=== PATIENT | male | born 1945 | race Caucasian/White ===

== ENCOUNTER → 2017-11-07 | Outpatient (CLI) | payer OTHER, MEDICARE ==
[~2017-11-07] MED LIST: CATHETER FLUSH 10 ML SYR IV PRN; IOHEXOL 350 MG/ML 150 ML (OMNIPAQUE 350) VIAL IV ONE; NS 250 ML (IVPB) BAG IV ONE
[2017-11-07 12:27] LABS: BASOPHILS % (AUTO) 0 % (0-10); EOSINOPHILS # (AUTO) 0.2 10^3/uL (0.0-0.3); EOSINOPHILS % (AUTO) 2 % (0-10); HEMATOCRIT 40 % (40-54); LYMPHOCYTES # (AUTO) 1.6 X 10^3 (1.0-4.0); LYMPHOCYTES % (AUTO) 11 % (12-44); MEAN CORPUSCULAR HEMOGLOBIN 38 PG (25-34); MEAN CORPUSCULAR HGB CONC 35 G/DL (32-36); MEAN CORPUSCULAR VOLUME 107 FL (80-99); MEAN PLATELET VOLUME 8.7 FL (7.4-10.4); MONOCYTES # (AUTO) 1.2 X 10^3 (0.0-1.0); MONOCYTES % (AUTO) 8 % (0-12); NEUTROPHILS # (AUTO) 11.4 X 10^3 (1.8-7.8); NEUTROPHILS % (AUTO) 79 % (42-75); PLATELET COUNT 425 10^3/uL (130-400); RED BLOOD COUNT 3.73 10^6/uL (4.35-5.85); RED CELL DISTRIBUTION WIDTH 14.6 % (10.0-14.5); WHITE BLOOD COUNT 14.5 10^3/uL (4.3-11.0)
[2017-11-07 12:42] LABS: BAND NEUTROPHILS 3 %; BASOPHILS % (MANUAL) 0 %; EOSINOPHILS % (MANUAL) 0 %; LYMPHOCYTES % (MANUAL) 14 %; MONOCYTES % (MANUAL) 8 %; NEUTROPHILS % (MANUAL) 75 %
[2017-11-07 12:46] LABS: BUN/CREATININE RATIO 23; CALCIUM 8.6 MG/DL (8.5-10.1); CARBON DIOXIDE 27 MMOL/L (21-32); CHLORIDE 95 MMOL/L (98-107); CREATININE SERUM 0.91 MG/DL (0.60-1.30); GFR ESTIMATED > 60; GLUCOSE 95 MG/DL (70-105); POTASSIUM 4.7 MMOL/L (3.6-5.0); SODIUM 130 MMOL/L (135-145)
--- NOTE | 2017-11-07 13:42 | Diagnostic Imaging Report ---
PROCEDURE: CT angiography of the chest with contrast. TECHNIQUE: Multiple contiguous axial images were obtained through the chest after uneventful bolus administration of intravenous contrast. Reconstructed CTA MIP acquisitions were also performed. INDICATION: Cough and hemoptysis. COMPARISON: Comparison is made with prior CT chest from 04/25/2017. FINDINGS: The thoracic aorta is normal caliber. No dissection is seen. The pulmonary arterial system is without evidence of thromboembolism. No filling defects within the central, lobar, or segmental branches are seen. Trace pericardial fluid is present. No pleural fluid is identified. No definite axillary, hilar, or mediastinal lymphadenopathy is seen. There appears to be diffuse circumferential wall thickening involving the esophagus. Parenchymal evaluation does show diffuse centrilobular emphysematous changes. There is a spiculated mass-like density in the right upper lobe, similar in size to outside CT from [facility] on 04/25/2017. This measures 10 mm. No other parenchymal mass is identified. There is some scarring or atelectasis in the right middle lobe and lingula. The upper abdomen demonstrates hepatic steatosis. No adrenal mass is seen. IMPRESSION: 1. No evidence of pulmonary embolism or thoracic aortic dissection. 2. Spiculated mass-like density in the right upper lobe. Small neoplasm cannot be entirely excluded. PET scan may be useful for further evaluation. No thoracic lymphadenopathy is seen. 3. Diffuse circumferential wall thickening of the esophagus. Correlation with endoscopy would be useful for further evaluation. Dictated by: Dictated on workstation # [id number]
== END ==
LOC: RAD 12:07
PROVIDERS: ATTEND Nurse Practitioner Family
DX: K22.8 Other specified diseases of esophagus (principal); J44.9 Chronic obstructive pulmonary disease, unspecified; R91.8 Other nonspecific abnormal finding of lung field
CPT/HCPCS: 36415; 71275; 80048; 85007; 85027

== ENCOUNTER 2018-04-11 07:45 | Day surgery (SDC) | payer MEDICARE, OTHER ==
[~2018-04-11] VITALS: Ht 167.6 cm; Wt 61.2 kg
[2018-04-11] MEDS ORDERED: LIDOCAINE JELLY 2% (XYLOCAINE) 30 ML TUBE TOP ONE (07:46)
[2018-04-11] MEDS ORDERED: LIDOCAINE PF 2% 5 ML (XYLOCAINE) VIAL INJ ONE ×2 (07:46→09:30)
[2018-04-11] MEDS ORDERED: LIDOCAINE PF 1% 2 ML VIAL (OR ONLY) IJ ONE (07:46)
--- OUTSIDE RECORDS SUMMARY | 2018-04-11 07:57 | XMS REPORT ---
Author Author [facility] Medical Staff Organization [facility] Address [address] [place], [place] [id number] Phone [phone] Care Team Providers Care Customs Examiner Name Role Phone ELOINA RUTH DO PP [phone] Summary purpose CCDA Sent to [facility] Chief Complaint and Reason for Visit No authorized Reason for Visit (Admitting Diagnosis) is available for this visit. Problem list No authorized problems tracked for continuity of care are available for this visit. Encounters No authorized problems tracked for encounter diagnoses are available for this visit. Medications No medications recorded for this patient visit Allergies, adverse reactions, alerts No allergy information is available for this patient. Immunizations No immunizations recorded for this patient visit Relevant diagnostic tests and/or laboratory data No authorized results are available for this patient visit History of procedures Procedure Code Code Type Description Date Performed Performing Physician [id number] CPT-4 CHEST X-RAY 05-04-2017 SOLO HACKETT [id number] CPT-4 BIOPSY, LUNG OR MEDIASTINUM 05-04-2017 ELOINA RUTH 83806 CPT-4 CT SCAN FOR NEEDLE BIOPSY 05-04-2017 ELOINA RUTH 98681 CPT-4 CHEST X-RAY 05-04-2017 SOLO HACKETT Functional status No functional or cognitive status observations are available for this visit. Vital signs No authorized vital signs are available for this visit. Social history No Social History or smoking status observations were recorded for this visit. ( Unknown if ever smoked.) Treatment Plan No treatment plan text is available for this visit. Hospital discharge instructions No discharge instruction text is available for this visit.
--- OUTSIDE RECORDS SUMMARY | 2018-04-11 07:57 | XMS REPORT | Clinical Summary ---
Author Author Admin, [facility] Organization [facility] [employer] Address Unknown Phone Unavailable Allergies, Adverse Reactions, Alerts Allergy Name Reaction Description Start Date Severity Status Provider Allergies Unknown Conditions or Problems Problem Name Problem Code Onset Date Status Entry Date Provider Comment Standard Description Annotate Problems Unknown Active Medication List Medication Instructions Start Date Stop Date Generic Name NDC Status Provider Patient Instruction Drug Treatment Unknown - unknown
--- OUTSIDE RECORDS SUMMARY | 2018-04-11 07:57 | XMS REPORT | Clinical Summary ---
Author Author Admin, [facility] Organization [facility] [employer] Address Unknown Phone Unavailable Allergies, Adverse Reactions, [...]
--- OUTSIDE RECORDS SUMMARY | 2018-04-11 07:58 | XMS REPORT | Continuity of Care Document ---
Author Author [facility] Address [address] [place] [address] Phone Unavailable Care Team Providers Care Event Crew Technician Name Role Phone ELOINA RUTH DO PCP Insurance Providers Payer Name Policy Number Subscriber Name Relationship [facility] [id number] Rashida Hernandez 18 Self / Same As Patient Medicare [id number] Rashida Hernandez 18 Self / Same As Patient Advance Directives Directive Response Recorded Date/Time Advance Directives Yes 09/22/16 9:00am Advance Directive on File Yes 09/22/16 9:00am Problems No problem information available. Medications Current Home Medications Medication Dose Units Route Directions Days/Qty Instructions Start Date Clonazepam 1 Mg 0.5 Mg Oral Twice A Day for Anxiety 08/29/16 Citalopram Hydrobromide 20 Mg 20 Mg Oral Once A Day for Depression 08/29/16 Budesonide/Formoterol Fumarate 10.2 Gm 10.2 Gm Inhalation Twice A Day for Asthma 08/29/16 Fluticasone Propionate (Flonase) 50 Mcg/Actuation 1 Yeoman Nasal Once A Day for Allergies 08/29/16 Aspirin 81 Mg 81 Mg Oral Once A Day for Blood Thinning 08/29/16 Naproxen 375 Mg 250 Mg Oral Twice A Day for Pain 08/29/16 Lisinopril/Hydrochlorothiazide 1 Each 1 Each Oral Once A Day for Hypertension 08/29/16 Social History No social history. Hospital Discharge Instructions No hospital discharge instructions. Plan of Care Discharge Date 09/22/16 12:00pm Prescriptions See Medication Section Functional Status No functional status results. Allergies, Adverse Reactions, Alerts No allergy information available. Immunizations No immunization records. Vital Signs Acute Vital Signs Vital Response Date/Time Temperature (Fahrenheit) 97.2 degrees F (97.6 - 99.5) 09/22/2016 11:12am Temperature (Calculated Celsius) 36.62200 degrees C (36.4 - 37.5) 09/22/2016 11:12am Temperature Source Temporal Artery Scan 09/22/2016 11:12am Pulse Pulse Rate (adult) 69 beats per minute (60 - 90) 09/22/2016 11:25am Oxygen Saturation Respiratory Rate 16 breaths per minute (12 - 24) 09/22/2016 11:25am O2 Sat by Pulse Oximetry 96 % (90 - 100) 09/22/2016 11:25am Blood Pressure 110/59 mm Hg 09/22/2016 11:25am Blood Pressure Mean 76 mm Hg 09/22/2016 11:25am Results No known relevant diagnostic tests, laboratory data and/or discharge summary. Procedures Procedure Status Date Provider(s) ANESTH SURG UPPER ABDOMEN Completed 09/01/16 ANESTH LOW INTESTINE SCOPE Completed 09/01/16 TALIB FIERRO ADVERTISING DISPATCH CLERK COLONOSCOPY AND BIOPSY Completed 09/01/16 ELOINA RUTH DO TISSUE EXAM BY PATHOLOGIST Completed 09/01/16 EXCISION OF DESCENDING COLON, ENDO Completed 09/01/16 ELOINA RUTH ARIC B. ADVERTISING DISPATCH CLERK EXCISION OF SIGMOID COLON, ENDO Completed 09/01/16 ELOINA RUTH ARIC B. ADVERTISING DISPATCH CLERK Colonoscopy & polypectomy Completed 09/22/16 NORIS BACON MD Encounters Encounter Location Arrival/Admit Date Discharge/Depart Date Attending Provider Departed [facility] 09/22/16 8:58am 09/22/16 12 :00pm ELOINA RUTH DO Departed [facility] 09/01/16 7:16am 09/01/16 11 :00am ELOINA RUTH DO
--- OUTSIDE RECORDS SUMMARY | 2018-04-11 07:58 | XMS REPORT | Continuity of Care Document ---
Author Author [facility] Organization [facility] Address [address] [place] [address] Phone Unavailable Care Team Providers Care Sfdc Technical Architect Name Role Phone ELOINA RUTH DO PCP Insurance Providers Payer Name Policy Number Subscriber Name Relationship [facility] [employer] [id number] Rashida Hernandez 18 Self / Same As Patient Medicare [id number] Rashida Hernandez 18 Self / Same As Patient Advance Directives Directive Response Recorded Date/Time Advance Directives Yes 09/01/16 7:20am Advance Directive on File No 09/01/16 7:20am Problems No problem information available. Medications Current Home Medications Medication Dose Units Route Directions Days/Qty Instructions Start Date Clonazepam 1 Mg 0.5 Mg Oral Twice A Day for Anxiety 08/29/16 Citalopram Hydrobromide 20 Mg 20 Mg Oral Once A Day for Depression 08/29/16 Budesonide/Formoterol Fumarate 10.2 Gm 10.2 Gm Inhalation Twice A Day for Asthma 08/29/16 Fluticasone Propionate (Flonase) 50 Mcg/Actuation 1 Adamant Nasal Once A Day for Allergies 08/29/16 Aspirin 81 Mg 81 Mg Oral Once A Day for Blood Thinning 08/29/16 Naproxen 375 Mg 250 Mg Oral Twice A Day for Pain 08/29/16 Lisinopril/Hydrochlorothiazide 1 Each 1 Each Oral Once A Day for Hypertension 08/29/16 Social History No social history. Hospital Discharge Instructions No hospital discharge instructions. Plan of Care Discharge Date 09/01/16 11:00am Prescriptions See Medication Section Functional Status No functional status results. Allergies, Adverse Reactions, Alerts No allergy information available. Immunizations No immunization records. Vital Signs Acute Vital Signs Vital Response Date/Time Temperature (Fahrenheit) 97.0 degrees F (97.6 - 99.5) 09/01/2016 9:59am Temperature (Calculated Celsius) 36.97493 degrees C (36.4 - 37.5) 09/01/2016 9:59am Temperature Source Temporal Artery Scan 09/01/2016 9:59am Pulse Pulse Rate (adult) 62 beats per minute (60 - 90) 09/01/2016 10:37am Oxygen Saturation Respiratory Rate 16 breaths per minute (12 - 24) 09/01/2016 10:37am O2 Sat by Pulse Oximetry 95 % (90 - 100) 09/01/2016 10:37am Blood Pressure 122/52 mm Hg 09/01/2016 10:37am Blood Pressure Mean 75 mm Hg 09/01/2016 10:37am Results No known relevant diagnostic tests, laboratory data and/or discharge summary. Procedures Procedure Status Date Provider(s) Colonoscopy Completed 09/01/16 ELOINA RUTH DO Encounters Encounter Location Arrival/Admit Date Discharge/Depart Date Attending Provider Departed [facility] 09/01/16 7:16am 09/01/16 11 :00am ELOINA RUTH DO
--- OUTSIDE RECORDS SUMMARY | 2018-04-11 07:58 | XMS REPORT | Continuity of Care Document ---
Author Author [facility] Address Unknown Phone Unavailable Allergies Active Description Code Type Severity Reaction Onset Reported/Identified Relationship to Patient Clinical Status Yes No Known Drug Allergies [id number] Drug Allergy Unknown N/A 06/16/2017 Medications There is no data. Problems Date Dx Coded Attending Type Code Diagnosis Diagnosed By 08/26/2016 Other I10 ESSENTIAL ( PRIMARY) HYPERTENSION 09/01/2016 Other I10 ESSENTIAL ( PRIMARY) HYPERTENSION 09/01/2016 ELOINA RUTH DO D12.4 BENIGN NEOPLASM OF DESCENDING COLON 09/01/2016 ELOINA RUTH DO D12.5 BENIGN NEOPLASM OF SIGMOID COLON 09/01/2016 ELOINA RUTH DO Other F10.20 ALCOHOL DEPENDENCE, UNCOMPLICATED 09/01/2016 ELOINA RUTH DO F41.1 GENERALIZED ANXIETY DISORDER 09/01/2016 ELOINA RUTH DO I10 ESSENTIAL (PRIMARY) HYPERTENSION 09/01/2016 ELOINA RUTH DO J43.9 EMPHYSEMA, UNSPECIFIED 09/01/2016 ELOINA RUTH DO Other M19.049 PRIMARY OSTEOARTHRITIS, UNSPECIFIED HAND 09/01/2016 ELOINA RUTH DO Other N40.0 BENIGN PROSTATIC HYPERPLASIA WITHOUT LOWER URINRY TRACT SYMP 09/01/2016 ELOINA RUTH DO Other Z72.0 TOBACCO USE 09/14/2016 Other I10 ESSENTIAL ( PRIMARY) HYPERTENSION 09/21/2016 Other I10 ESSENTIAL ( PRIMARY) HYPERTENSION 09/22/2016 ELOINA RUTH DO Other D12.4 BENIGN NEOPLASM OF DESCENDING COLON 04/21/2017 Other I10 ESSENTIAL ( PRIMARY) HYPERTENSION 04/21/2017 ELOINA RUTH DO Other J43.9 EMPHYSEMA, UNSPECIFIED 05/04/2017 LEW HURT, SOLO Pimentel R91.1 Solitary pulmonary nodule 05/04/2017 LEW HURT, SOLO Pimentel R91.8 Other nonspecific abnormal finding of lung field 05/04/2017 LEW HURT, SOLO Pimentel Z72.0 Tobacco use 08/11/2017 PRABHJOT LEWIS DO 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 08/11/2017 PRABHJOT LEWIS DO Ot R91.1 SOLITARY PULMONARY NODULE 11/07/2017 PRABHJOT LEWIS DO Ot R91.8 OTHER NONSPECIFIC ABNORMAL FINDING OF NERY 11/07/2017 PRABHJOT LEWIS DO 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 11/07/2017 PRABHJOT LEWIS DO Ot R91.1 SOLITARY PULMONARY NODULE 11/08/2017 DYLAN DAILEY APRN Ot J44.9 CHRONIC OBSTRUCTIVE PULMONARY DISEASE, U 11/08/2017 DYLAN DAILEY APRN Ot K22.8 OTHER SPECIFIED DISEASES OF ESOPHAGUS 11/08/2017 DYLAN DAILEY APRN Ot R91.8 OTHER NONSPECIFIC ABNORMAL FINDING OF NERY 11/11/2017 Other I10 ESSENTIAL ( PRIMARY) HYPERTENSION 11/11/2017 FARAZ TORRES ELOINA Other J43.9 EMPHYSEMA, UNSPECIFIED 11/11/2017 FARAZ TORRES ELOINA Other F10.20 ALCOHOL DEPENDENCE, UNCOMPLICATED 11/11/2017 FARAZ DO ELOINA Other J43.9 EMPHYSEMA, UNSPECIFIED 11/11/2017 RUTH DO, ELOINA Other L29.9 PRURITUS, UNSPECIFIED 11/11/2017 RUTH DO ELOINA Other R60.9 EDEMA, UNSPECIFIED 11/11/2017 RUTH DO ELOINA Other F10.20 ALCOHOL DEPENDENCE, UNCOMPLICATED 11/11/2017 RUTH DO ELOINA Other J43.9 EMPHYSEMA, UNSPECIFIED 11/11/2017 RUTH DO ELOINA Other L29.9 PRURITUS, UNSPECIFIED 11/11/2017 RUTH DO ELOINA Other R60.9 EDEMA, UNSPECIFIED 11/11/2017 RUTH DO, ELOINA Other J43.9 EMPHYSEMA, UNSPECIFIED 11/11/2017 URTH DO, ELOINA Other R91.8 OTHER NONSPECIFIC ABNORMAL FINDING OF LUNG FIELD 11/11/2017 Other J44.1 CHRONIC OBSTRUCTIVE PULMONARY DISEASE W (ACUTE) EXACERBATION 11/11/2017 Other R55 SYNCOPE AND COLLAPSE 11/11/2017 Other R55 SYNCOPE AND COLLAPSE 11/29/2017 Other J44.1 CHRONIC OBSTRUCTIVE PULMONARY DISEASE W (ACUTE) EXACERBATION 11/30/2017 Other R55 SYNCOPE AND COLLAPSE 01/17/2018 DYLAN DAILEY APRN Ot J44.9 CHRONIC OBSTRUCTIVE PULMONARY DISEASE, U 01/17/2018 DYLAN DAILEY APRN Ot K22.8 OTHER SPECIFIED DISEASES OF ESOPHAGUS 01/17/2018 DYLAN DAILEY APRN Ot R91.8 OTHER NONSPECIFIC ABNORMAL FINDING OF NERY 01/26/2018 PRABHJOT LEWIS DO Ot R91.8 OTHER NONSPECIFIC ABNORMAL FINDING OF NERY 01/26/2018 PRABHJOT LEWIS DO 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 01/26/2018 PRABHJOT LEWIS DO Ot R91.1 SOLITARY PULMONARY NODULE 01/26/2018 DYLAN DAILEY APRN Ot J44.9 CHRONIC OBSTRUCTIVE PULMONARY DISEASE, U 01/26/2018 DYLAN DAILEY APRN Ot K22.8 OTHER SPECIFIED DISEASES OF ESOPHAGUS 01/26/2018 DYLAN DAILEY APRN Ot R91.8 OTHER NONSPECIFIC ABNORMAL FINDING OF NERY 02/02/2018 Other R42 DIZZINESS AND GIDDINESS 02/02/2018 Other R55 SYNCOPE AND COLLAPSE 02/02/2018 Other R60.9 EDEMA, UNSPECIFIED 02/02/2018 DYLAN DAILEY APRN Ot J44.9 CHRONIC OBSTRUCTIVE PULMONARY DISEASE, U 02/02/2018 DYLAN DAILEY APRN Ot K22.8 OTHER SPECIFIED DISEASES OF ESOPHAGUS 02/02/2018 DYLAN DAILEY APRN Ot R91.8 OTHER NONSPECIFIC ABNORMAL FINDING OF NERY 03/09/2018 PRABHJOT LEWIS DO 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 03/09/2018 PRABHJOT LEWIS DO Ot R91.1 SOLITARY PULMONARY NODULE 03/12/2018 Other 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, UNSPECIFIED SHOULDER Procedures Code [place] [address] [address] LUNG/MEDIASTINUM ELOINA RUTH DO 05/04/2017 08707 CHEST X-RAY 1 VIEW FRONTAL LEW HURT, SOLO Mayen 05/04/[address] SCAN FOR NEEDLE BIOPSY ELOINA RUTH DO 05/04/2017 Results Test Result Range CBC With Differential/Platelet - 08/12/16 12:00 WBC 8.0 x10E3/uL 3.4-10.8 RBC 4.16 x10E6/uL 4.14-5.80 Hemoglobin 15.1 g/dL 12.6-17.7 Hematocrit 45.1 % 37.5-51.0 MCV 108 fL 79-97 MCH 36.3 pg 26.6-33.0 MCHC 33.5 g/dL 31.5-35.7 RDW 14.2 % 12.3-15.4 Platelets 327 x10E3/uL 150-379 Neutrophils 66 % Lymphs 21 % Monocytes 12 % Eos 1 % Basos 0 % Neutrophils (Absolute) 5.3 x10E3/uL 1.4-7.0 Lymphs (Absolute) 1.7 x10E3/uL 0.7-3.1 Monocytes(Absolute) 1.0 x10E3/uL 0.1-0.9 Eos (Absolute) 0.1 x10E3/uL 0.0-0.4 Baso (Absolute) 0.0 x10E3/uL 0.0-0.2 Immature Granulocytes 0 % Immature Grans (Abs) 0.0 x10E3/uL 0.0-0.1 Comp. Metabolic Panel (14) - 08/12/16 12:00 Glucose, Serum 82 mg/dL 65-99 BUN 27 mg/dL 8-27 Creatinine, Serum 1.20 mg/dL 0.76-1.27 eGFR If NonAfricn Am 60 mL/min/1.73 >59 eGFR If Africn Am 70 mL/min/1.73 >59 BUN/Creatinine Ratio 23 10-22 Sodium, Serum 135 mmol/L 134-144 Potassium, Serum 5.6 mmol/L 3.5-5.2 Chloride, Serum 97 mmol/L 96-106 Carbon Dioxide, Total 18 mmol/L 18-29 Calcium, Serum 9.5 mg/dL 8.6-10.2 Protein, Total, Serum 7.4 g/dL 6.0-8.5 Albumin, Serum 4.8 g/dL 3.5-4.8 Globulin, Total 2.6 g/dL 1.5-4.5 A/G Ratio 1.8 1.1-2.5 Bilirubin, Total 0.5 mg/dL 0.0-1.2 Alkaline Phosphatase, S 83 IU/L 39-117 AST (SGOT) 30 IU/L 0-40 ALT (SGPT) 26 IU/L 0-44 Lipid Panel - 08/12/16 12:00 Cholesterol, Total 180 mg/dL 100-199 Triglycerides 68 mg/dL 0-149 HDL Cholesterol 76 mg/dL >39 VLDL Cholesterol Jim 14 mg/dL 5-40 LDL Cholesterol Calc 90 mg/dL 0-99 HCV Antibody - 08/12/16 12:00 Hep C Virus Ab <0.1 s/co ratio 0.0-0.9 Basic Metabolic Panel (8) - 08/19/16 15:11 Glucose, Serum 110 mg/dL 65-99 BUN 21 mg/dL 8-27 Creatinine, Serum 0.95 mg/dL 0.76-1.27 eGFR If NonAfricn Am 80 mL/min/1.73 >59 eGFR If Africn Am 93 mL/min/1.73 >59 BUN/Creatinine Ratio 22 10-22 Sodium, Serum 142 mmol/L 134-144 Potassium, Serum 4.7 mmol/L 3.5-5.2 Chloride, Serum 103 mmol/L 96-106 Carbon Dioxide, Total 24 mmol/L 18-29 Calcium, Serum 8.9 mg/dL 8.6-10.2 PSA, Serum (Serial Monitor) - 09/06/16 16:22 Prostate Specific Ag, Serum 1.0 ng/mL 0.0-4.0 Lipid Panel - 07/28/17 16:10 Cholesterol, Total 156 mg/dL 100-199 Triglycerides 69 mg/dL 0-149 HDL Cholesterol 70 mg/dL >39 VLDL Cholesterol Jim 14 mg/dL 5-40 LDL Cholesterol Calc 72 mg/dL 0-99 Specimen Identification Status - 07/28/17 16:10 Specimen Identification Status Comment Encounters ACCT No. Visit Date/Time Discharge Status Pt. Type Provider Facility Loc./Unit Complaint [id number] 05/04/2017 08:30:00 05/04/2017 08:30:00 DIS Outpatient LEW HURT, [facility] [id number] 01/06/2017 20:01:13 ACT Unknown [id number] 08/13/2016 13:05:00 Document Registration [id number] 09/08/2016 18:05:00 Document Registration [id number] 08/20/2016 13:05:00 Document Registration [id number] 12/20/2017 13:58:00 12/20/2017 23:59:59 [facility] [id number] 12/20/2017 13:08:00 12/20/2017 23:59:00 [facility] [id number] 12/11/2017 12:37:00 12/11/2017 23:59:00 [facility] [id number] 12/11/2017 10:21:00 12/11/2017 23:59:00 [id number]/22/2017 12:33:00 11/22/2017 23:59:00 DIS Outpatient [facility] [id number] 11/13/2017 15:37:00 11/13/2017 23:59:00 DIS Outpatient [facility] [id number] 11/06/2017 14:23:00 11/06/2017 23:59:00 DIS Outpatient [facility] [id number] 05/02/2017 15:14:00 05/02/2017 23:59:59 CLS Outpatient [facility] LAB LAB [id number] 04/25/2017 07:48:00 04/25/2017 23:59:59 CLS Outpatient [facility] CT COPD EDEMA [id number] 04/21/2017 09:58:00 04/21/2017 23:59:59 CLS Outpatient [facility] LAB LAB [id number] 12/23/2016 16:02:00 12/23/2016 23:59:59 CLS Outpatient [facility] RAD [id number] 09/22/2016 08:58:00 09/22/2016 12:00:00 DIS Outpatient [facility] OR COLONOSCOPY [id number] 09/01/2016 07:16:00 09/01/2016 11:00:00 DIS Outpatient [facility] OR COLONOSCOPY SCREENING [id number] 08/16/2016 00:00:00 08/16/2016 23:59:59 CLS Outpatient [facility] V81.2 [id number] 03/06/2018 14:58:00 Document Registration [id number] 12/11/2017 07:04:00 Document Registration [id number] 11/02/2017 12:55:00 Document Registration [id number] 10/31/2017 16:13:00 Document Registration [id number] 10/27/2017 16:15:00 Document Registration [id number] 07/31/2015 16:44:00 Document Registration [id number] 02/09/2018 15:15:00 02/09/2018 23:59:59 CLS Preadmit DYLAN DAILEY CAN REPAIRER [facility] RAD R91.8 LUNG MASS [id number] 11/07/2017 12:07:00 11/07/2017 23:59:59 CLS Outpatient DYLAN DAILEY CAN REPAIRER [facility] RAD R04.2 HEMOPTYSIS [id number] 09/14/2017 15:45:00 09/14/2017 23:59:59 CLS Preadmit DYLAN DAILEY CAN REPAIRER [facility] RAD R91.8 LUNG MASS [id number] 06/20/2017 07:09:00 06/20/2017 23:59:59 CLS Outpatient PRABHJOT LEWIS DO [facility] RAD R91.8 RUL MASS [id number] 06/16/2017 16:29:00 06/16/2017 23:59:59 CLS Outpatient PRABHJOT LEWIS DO [facility] RAD LUNG MASS [id number] 08/02/2017 18:06:00 Document Registration
[2018-04-11 08:00] VITALS: BP_SYST 123; BP_SYST 164; BP_DIAS 56; BP_DIAS 80
[2018-04-11] MEDS ORDERED: NS IV 500 ML 500 ML IV PRN ×2 (08:08→10:34)
[2018-04-11] MEDS ORDERED: NS IV 500 ML 500 ML ONE (08:11)
[2018-04-11] MEDS ORDERED: LIDOCAINE JELLY 2% (XYLOCAINE) 5 ML TUBE MM PRN ×2 (08:15→10:45)
[2018-04-11] MEDS ORDERED: HURRICAINE EXT TUBE (BENZOCAINE) XX PRN ×2 (08:15→10:45)
[2018-04-11] MEDS ORDERED: MIDAZOLAM 2 MG/2 ML (VERSED) VIAL IVP ONE ×2 (08:15→10:45)
[2018-04-11] MEDS ORDERED: fentaNYL INJECTION 100 MCG/2 ML AMP IVP ONE ×2 (08:15→10:45)
[2018-04-11] MEDS ORDERED: CLON0.5T13 PO (09:04)
[2018-04-11] MEDS ORDERED: PRIM50TA PO (09:04)
[2018-04-11] MEDS ORDERED: ASPI-586 PO (09:04)
[2018-04-11] MEDS ORDERED: RT-ALBUINH IH ×2 (09:04)
[2018-04-11] MEDS ORDERED: NAPR220C11 PO (09:04)
[2018-04-11] MEDS ORDERED: CITA20TA9 PO (09:04)
[2018-04-11] MEDS ORDERED: UMEC62.5 IH (09:04)
[2018-04-11] MEDS ORDERED: LOPE2TAB34 PO (09:04)
[2018-04-11] MEDS ORDERED: ATOR40TA70 PO (09:04)
[2018-04-11] MEDS ORDERED: BUDE10.2 IH (09:04)
[2018-04-11] MEDS ORDERED: FLUT16SP22 NSEACH (09:04)
[2018-04-11] MEDS ORDERED: ALBU0.63 IH (09:04)
[2018-04-11] MEDS ORDERED: fentaNYL INJECTION 100 MCG/2 ML AMP ONE ×2 (09:35→09:36)
[2018-04-11] MEDS ORDERED: MIDAZOLAM 2 MG/2 ML (VERSED) VIAL ONE ×4 (09:36)
--- NOTE | 2018-04-11 10:56 | Diagnostic Imaging Report ---
INDICATION: Status post bronchoscopy. COMPARISON: CT chest dated 04/10/2018. FINDINGS: Single frontal radiographic view of the chest was obtained. Lungs are hyperinflated consistent with background of COPD. There is no effusion or pneumothorax. Nodule described on recently performed CT chest is inconspicuous on this exam. There is some hazy increased opacification in this area, however, which may be on the basis of pulmonary hemorrhage. Cardiac silhouette and pulmonary vasculature are within normal limits. Bony structures show no gross acute abnormalities. IMPRESSION: 1. Hazy opacification of the right upper lung field, which may be on the basis of pulmonary hemorrhage status post fluoroscopic guided biopsy. 2. No large pneumothorax or pleural effusion. 3. Background of COPD. Dictated by: Dictated on workstation # [id number]
[2018-04-11 11:28] VITALS: BP 126/73
[2018-04-11 11:50] VITALS: BP 126/73
--- NOTE | 2018-04-11 12:16 | Diagnostic Imaging Report ---
INDICATION: Bronchoscopy. Lung lesion. COMPARISON: CT dated 04/10/2018. FINDINGS: Single intraoperative image intensifier view of the right chest was obtained during fluoroscopic guided lung biopsy. Image provided shows bronchoscope on the right. Total fluoroscopy time is 13.8 seconds. Please note, interpreting radiologist was not present during procedure. IMPRESSION: 1. Fluoroscopic guidance provided during fluoroscopic biopsy. Dictated by: Dictated on workstation # [id number]
--- NOTE | 2018-04-11 12:28 | Pulmonary Procedures ---
Pulmonary Procedures Date of Procedure Date of Service: Apr 11, 2018 Bronch Bronchoscopy with RUL bronchoalveolar lavage (BAL), transbronchial washes and, brushes. I also did precepta brush of right mainstem justus Preop DX lung nodule Postop DX: same Complications: none After informed consent obtained and formal time out pt was sedated using Fentanyl and Versed. Bronchoscope was advanced through the nare and vocal cords. 1% lidocaine was used to anesthetize vocal cords, epiglottis, justus, and left/right main stem bronchus. An anatomical tour was undertaken down to the segmental bronchi bilaterally. No endobronchial lesions noted. From the RUL bronchoalveolar lavage (BAL), transbronchial washes and, brushes. I also did precepta brush of right mainstem justus were obtained. Pt tolerated procedure well. No complications noted. Stat CXR is pending. PRABHJOT LEWIS DO Apr 11, 2018 12:28
== END 2018-04-11 11:50 | disposition home or self-care (01) ==
LOC: ENDO 07:45
PROVIDERS: ATTEND Internal Medicine Critical Care Medicine
DX: R91.1 Solitary pulmonary nodule (principal); J44.9 Chronic obstructive pulmonary disease, unspecified; R06.00 Dyspnea, unspecified; R09.02 Hypoxemia; R55 Syncope and collapse; F17.210 Nicotine dependence, cigarettes, uncomplicated; Z79.82 Long term (current) use of aspirin; Z79.899 Other long term (current) drug therapy
CPT/HCPCS: 71045; 87070; 87101; 87116; 87205; 88112; 88305; 88312; 94640

== ENCOUNTER → 2018-07-24 | Outpatient (CLI) | payer MEDICARE, OTHER ==
[~2018-07-24] MED LIST changes: +ALBU0.63 IH; +ASPI-586 PO; +ATOR40TA70 PO; +BUDE10.2 IH; -CATHETER FLUSH 10 ML SYR IV PRN; +CITA20TA9 PO; +CLON0.5T13 PO; +FLUT16SP22 NSEACH; -IOHEXOL 350 MG/ML 150 ML (OMNIPAQUE 350) VIAL IV ONE; +LOPE2TAB34 PO; +NAPR220C11 PO; -NS 250 ML (IVPB) BAG IV ONE; +PRIM50TA PO; +RT-ALBUINH IH; +UMEC62.5 IH
--- NOTE | 2018-07-24 10:34 | Diagnostic Imaging Report ---
PROCEDURE: CT chest without contrast. TECHNIQUE: Multiple contiguous axial images were obtained through the chest without the use of intravenous contrast. INDICATION: COPD, asthma. FINDINGS: The previous CT chest exam performed on 04/10/2018 noted a spiculated mass in the right apex. On this exam, that finding is again evident and does not seem to have changed significantly. This spiculated mass did show borderline FDG uptake on the previous PET/CT exam of 06/20/2017. The emphysematous changes involving both lungs seen previously are again evident and no different. No new parenchymal abnormality has developed and there is no sign of failure, pneumonia or pleural effusion to indicate an acute abnormality. Heart is stable in size. Coronary artery calcifications are again noted. Aorta is not abnormally dilated. There is no obvious mediastinal or hilar adenopathy. Thyroid gland is unremarkable. The sections through the upper abdomen failed to show any sign of an acute abnormality. The bone windows are unremarkable for fracture or for destructive lesion. IMPRESSION: 1. The spiculated mass in the right apex seen previously appears stable. Consequently, it is unlikely that this finding is related to an aggressive neoplastic process. The possibility that this is secondary to an indolent neoplasm should still be considered however. A six-month followup CT chest exam would be recommended for continued evaluation. 2. The overall appearance to the chest is otherwise stable. No new abnormality has developed. Dictated by: Dictated on workstation # [id number]
== END ==
LOC: RAD 09:45
PROVIDERS: ATTEND Nurse Practitioner Family
DX: J44.9 Chronic obstructive pulmonary disease, unspecified (principal); R04.2 Hemoptysis; R91.8 Other nonspecific abnormal finding of lung field; F17.200 Nicotine dependence, unspecified, uncomplicated
CPT/HCPCS: 71250